=== PATIENT | male | born 1960 | race Caucasian/White ===

== ENCOUNTER 2016-05-15 16:38 | Emergency (ER) | payer OTHER ==
[~2016-05-15 16:38] MED LIST: CLIN1CAP5 PO; RANI150 PO
[2016-05-15] MEDS ORDERED: DIPHTH/TETANUS/ACEL PERTUSSIS (BOOSTER) 0.5 ML VIAL/PFS IM ONE ×2 (16:48→17:23)
[2016-05-15] MEDS ORDERED: ceFAZolin 2 GM PREMIX 50 ML ONE (16:48)
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
[2016-05-15] MEDS ORDERED: IOHEXOL 350 MG/ML 10 ML VIAL (for RAD DIAG) IV ONE (17:05)
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
[2016-05-15 17:07] LABS: I-STAT POTASSIUM 4.1 MMOL/L (3.5-4.9)
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
[2016-05-15 17:08] LABS: AUTOMATED NEUTROPHIL # 5.4 TH/MM3 (1.8-7.7); BASOPHIL % 0.6 % (0.0-2.0); EOSINOPHIL # 0.3 TH/MM3 (0-0.4); EOSINOPHIL % 4.2 % (0.0-4.0); HEMATOCRIT 42.1 % (39.0-51.0); HEMO FLAGS DIFF FINAL; LYMPH % 24.4 % (9.0-44.0); MEAN CORPUSCULAR HEMOGLOBIN 30.9 PG (27.0-34.0); MEAN CORPUSCULAR HGB CONC 33.6 % (32.0-36.0); MONO % 5.7 % (0.0-8.0); NEUT % 65.1 % (16.0-70.0); PLATELET COUNT 178 TH/MM3 (150-450); RED BLOOD COUNT 4.58 MIL/MM3 (4.50-5.90); RED CELL DISTRIBUTION WIDTH 12.8 % (11.6-17.2); WHITE BLOOD COUNT 8.3 TH/MM3 (4.0-11.0)
[2016-05-15 17:18] LABS: APTT (PATIENT) 21.9 SEC (24.3-30.1)
[2016-05-15] MEDS ORDERED: ceFAZolin 2 GM PREMIX 50 ML IV STA (17:23)
[2016-05-15] MEDS ORDERED: MORPHINE SULFATE 8 MG/ML INJ IV PUSH ONE (17:30)
[2016-05-15 17:57] VITALS: O2SAT 99
[2016-05-15 17:58] VITALS: O2SAT 99
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
[2016-05-15] MEDS ORDERED: HYDROmorphone HCL PF 1 MG/ML VIAL IV PUSH ONE (19:00)
[2016-05-15 19:04] VITALS: BP 114/70; PULSE 66; RESP 18; O2SAT 96
[2016-05-15] MEDS ORDERED: CEPH-460 PO (19:26)
[2016-05-15] MEDS ORDERED: IBUP-232 PO (19:26)
[2016-05-15] MEDS ORDERED: PERC5TAB12 PO (19:26)
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
== END 2016-05-16 00:56 | disposition home or self-care (01) ==
LOC: NEPI 16:38 → MERGE 16:38 → EDBD 16:38 → NEPC 05-16 00:56
DX: S62.647B Nondisplaced fracture of proximal phalanx of left little finger, initial encounter for open fracture (principal); S71.102A Unspecified open wound, left thigh, initial encounter; Z23 Encounter for immunization; Z72.0 Tobacco use; W32.0XXA Accidental handgun discharge, initial encounter
CPT/HCPCS: 29125; 73120; 73551; 75635; 82435; 82565; 82947; 84132; 84295; 84520; 85025; 85610; 85730; 86850; 86900; 86901; 90471; 90715; 96374; 96375; 99285; 99291; J1170; J2270; Q9967; G0390; J0690